=== PATIENT | male | born 1990 | race Caucasian/White ===

== ENCOUNTER 2018-03-25 09:34 | Emergency (ER) | payer OTHER, MEDICAID ==
--- NOTE | 2018-03-25 10:06 | EDM.PDOC ---
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 And ended up coming down on his right wrist and heard a pop. he is able to move the extremity but did experience pain right away. He noted when he woke up this morning his hand was swollen and decreased range of motion. He denies any numbness or tingling sensation up the arm. Denies taking any medications for pain relief Onset: Sudden Quality: Reports: Ache, Throbbing Severity: Moderate Right Wrist Pain Score (Numeric/FACES): 4 - Related Data Allergies Allergy/AdvReac Type Severity Reaction Status Date / Time No Known Allergies Allergy Verified 03/25/18 09:50 Home Meds: Home Meds . [No Known Home Meds] 03/25/18 [History] Past Medical History - Past Health History Medical/Surgical History: Denies Medical/Surgical History Review of Systems - Review of Systems Review Of Systems: See Below Constitutional: Reports: No Symptoms Mouth/Throat: Reports: No Symptoms Respiratory: Reports: No Symptoms Cardiovascular: Reports: No Symptoms GI/Abdominal: Reports: No Symptoms Musculoskeletal: Reports: No Symptoms Skin: Reports: No Symptoms Neurological: Reports: No Symptoms ED EXAM, GENERAL - Physical Exam Exam: See Below Exam Limited By: No Limitations General Appearance: Alert, WD/WN, No Apparent Distress Respiratory/Chest: No Respiratory Distress, No Accessory Muscle Use Cardiovascular: Normal Peripheral Pulses Extremities: Normal Inspection, Arm Pain (right wrist pain. mild swelling, no reddness, warmth, or ecchymosis noted. ) Neurological: Alert, Oriented Psychiatric: Normal Affect Skin Exam: Warm, Dry, Intact, Normal Color Course - Vital Signs Last Recorded V/S: Last Vital Signs Temp 36.6 C 03/25/18 09:37 Pulse 79 03/25/18 09:37 Resp 16 03/25/18 09:37 BP 152/88 H 03/25/18 09:37 Pulse Ox - Orders/Labs/Meds Orders: Active Orders 24 hr Category Date Time Status Splinting [RC] ASDIRECTED Care 03/25/18 10:08 Ordered Wrist Comp Min 3V Rt [CR] Stat Exams 03/25/18 09:43 Ordered Departure - Departure Time of Disposition: 10:15 Disposition: Home, Self-Care 01 Clinical Impression: Right wrist sprain Qualifiers: Encounter type: initial encounter Qualified Code(s): S63.501A - Unspecified sprain of right wrist, initial encounter - Discharge Information Instructions: Wrist Sprain, Adult Referrals: Brianna Bolanos MD [Primary Care Provider] - Additional Instructions: 1. rest 2. Ice the affected limb 3 times a day for 20 minutes at a time 3. Use brace for comfort while working for 3-4 days 4. Can return to normal work activity as tolerated 5. Follow up with PCP in one week if not better - My Orders Last 24 Hours: My Active Orders 03/25/18 09:43 Wrist Comp Min 3V Rt [CR] Stat 03/25/18 10:08 Splinting [RC] ASDIRECTED - Assessment/Plan Last 24 Hours: My Active Orders 03/25/18 09:43 Wrist Comp Min 3V Rt [CR] Stat 03/25/18 10:08 Splinting [RC] ASDIRECTED Assessment:: 1. right wrist pain 2. right wrist sprain Plan: 1. x-ray completed and reviewed with the patient 2. Wrist splint for comfort 3. Education provided regarding [id number] medications for pain relief 4. Recommendation to ice the area 3 times a day for 20 minute intervals 5. Can return to work but advised to take it easy when possible 6. Follow-up in one to 2 weeks with primary care provider if not Better
== END 2018-03-25 10:25 | disposition home or self-care (01) ==
LOC: VM.ED 09:34
DX: S63.501A Unspecified sprain of right wrist, initial encounter (principal); X50.9XXA Other and unspecified overexertion or strenuous movements or postures, initial encounter
CPT/HCPCS: 73110-RT; 99283